=== PATIENT | male | born 1955 | race Caucasian/White ===

== ENCOUNTER 2016-09-27 07:13 | Observation (INO) | payer MEDICARE, OTHER ==
[2016-09-20 12:43] LABS: HEMATOCRIT 42.5 % (40.0-51.0); HEMOGLOBIN 13.2 g/dL (13.6-17.8)
[2016-09-20 13:09] LABS: BUN (BLOOD UREA NITROGEN) 22 MG/DL (6-23); CALCIUM, SERUM 8.5 MG/DL (8.5-10.4); CHLORIDE, SERUM 104 MMOL/L (96-112); CO2 (CARBON DIOXIDE) 27 MMOL/L (24-34); CREATININE 0.65 MG/DL (0.70-1.30); GFR AFRICAN AMERICAN 120 ML/MIN (>=60); GFR NON AFRICAN AMERICAN 104 ML/MIN (>=60); SODIUM, SERUM 143 MMOL/L (135-148)
[2016-09-20 13:11] LABS: GLUCOSE, SERUM 88 MG/DL (60-99)
--- NOTE | ~2016-09-27 | CN ---
Consultation Report [facility] [address] [place]. [address] NAME: ADORE CHOE : 51 STATUS : DIS Nelson PAT#: [id number] AGE: 61 ADM/REG DATE : 09/27/16 MR#: [id number] REPORT SERV DATE: 10/04/16 DICTATED BY: DEMIAN WILKS DATE: 10/04/16 REPORT STATUS : Draft TRANSCRIBED BY: MODL DATE: 10/04/16 CARDIOLOGY CONSULTATION DATE OF CONSULTATION: 09/27/2016 REASON FOR CONSULTATION: Chest pain. HISTORY OF PRESENT ILLNESS: The patient is a 61-year-old male, well known to our Cardiology Service. 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 The patient also reported some recent exertional chest discomfort. The patient was seen by Dr. Osman in our cardiology department on 09/11/2016 with a nuclear perfusion study performed on 09/26/2016 showing no evidence of ischemia, but reduced ejection fraction. Subsequent echocardiogram demonstrated ejection fraction of 40% with global hypokinesis with more moderate inferolateral and apical hypokinesis. The patient's description of the chest pain was intermittent in nature, occurring more often with exertion then without. He could report that it could last up to 30 minutes to 1 hour with the radiation of both shoulders with associated dyspnea and diaphoresis. This occurred several times per week. Pain free at time of consultation. PAST MEDICAL HISTORY: 1. Atrial flutter, status post ablation, 01/03/2002. 2. Persistent atrial fibrillation, status post AV node ablation and biventricular pacemaker/ICD. 3. Ventricular tachycardia, status post original ICD in 2007. 4. Pulmonary hypertension. 5. Peripheral arterial disease, status post left subclavian bypass, followed by Dr. Poe. a. Left lower extremity [id number]-[id number] amputation. 6. Scleroderma. 7. Pulmonary hypertension secondary to scleroderma. 8. History of SVC syndrome. REVIEW OF SYSTEMS: Negative for all organ systems except per the history of present illness. SOCIAL HISTORY: Denies illicit drug use. FAMILY HISTORY: Noncontributory. PHYSICAL EXAMINATION: VITAL SIGNS: Blood pressure 111/60, pulse 63, respirations 16 and unlabored, saturating 100% on 1 L nasal cannula, weight 98 kg. GENERAL: Elderly overweight male, in no acute distress. Consultation Report [facility] [address] [place]. [address] NAME: ADORE CHOE : 51 STATUS : DIS Nelson PAT#: [id number] AGE: 61 ADM/REG DATE : 09/27/16 MR#: [id number] REPORT SERV DATE: 10/04/16 DICTATED BY: DEMIAN WILKS DATE: 10/04/16 REPORT STATUS : Draft TRANSCRIBED BY: MODLakshmi DATE: 10/04/16 HEENT: Normal. NECK: Supple, no JVD or bruit, normal carotid upstroke bilaterally, no thyromegaly. LUNGS: Decreased breath sounds at the bases bilaterally. Otherwise clear to auscultation. CARDIOLOGY: Regular rhythm, normal S1, S2, no thrill, no murmur, rubs or gallops, normal PMI. ABDOMEN: Bowel sounds positive, soft, nontender, and nondistended. No masses or aortic bruits. No hepatosplenomegaly or hepatojugular reflux. EXTREMITIES: Yvfsc-tav-lplr amputation of the left lower extremity. SKIN: Warm and dry, no significant rash. NEUROLOGIC: Alert and oriented x 3. Appropriate mood. LABORATORIES: Sodium 143, potassium 4, chloride 104, BUN 22, creatinine 0.62, glucose 88. Hemoglobin 13.2, hematocrit 42.5, INR 1.8. EKG: AV paced rhythm. IMPRESSION: 1. Chest pain. Recent nuclear perfusion stress test with no evidence of ischemia; however, reduced ejection fraction. We have recommended the patient for cardiac catheterization. The risks, benefits, and alternatives of procedure were discussed with the patient. The patient's questions were answered. The patient voiced understanding the procedure and complications and desired to proceed. 2. History of paroxysmal atrial flutter with persistent atrial fibrillation, status post ablation and implantable defibrillator. Stable and doing well. 3. Permanent pacemaker/ICD implantation, device with normal function by most recent interrogation. Thank you for the opportunity to see the patient in consultation. We will plan for cardiac catheterization with decision making based upon findings. LADONNAL/SALOME Orville Wilks M.D. / [id number] CC: Kapil Sepulveda M.D.
--- NOTE | ~2016-09-27 | OP ---
Record Of Operation [facility] [address] [place]. [address] NAME: ADORE CHOE : 51 STATUS : ADM Nelson PAT#: [id number] AGE: 61 ADM/REG DATE : 09/27/16 MR#: [id number] REPORT SERV DATE: 09/27/16 DICTATED BY: JARON POE DATE: 09/27/16 REPORT STATUS : Draft TRANSCRIBED BY: MODL DATE: 09/27/16 DATE OF PROCEDURE: 09/27/2016 PREOPERATIVE DIAGNOSIS: Left upper extremity ischemia secondary to failing left carotid subclavian bypass. POSTOPERATIVE DIAGNOSIS: Left upper extremity ischemia secondary to failing left carotid subclavian bypass. PROCEDURES: 1. Ultrasound-guided percutaneous access, left brachial artery. 2. Left upper extremity arteriogram. 3. Cutting balloon angioplasty, left carotid subclavian bypass, proximal and distal anastomosis (5 mm x 20 mm cutting balloon). 4. Drug-coated balloon angioplasty, left carotid subclavian bypass (6 mm x 40 mm IN.PACT Admiral balloon). SURGEON: Jaron Poe M.D. SCIENCE EDUCATION PROFESSOR: Jarred. ANESTHESIA: Local with MAC. ESTIMATED BLOOD LOSS: 10 mL. CONTRAST: 15 mL. COMPLICATIONS: None. INDICATIONS: Mr. Choe is a pleasant 61-year-old man with multiple medical comorbidities. He has a remote history of left carotid subclavian bypass for atherosclerotic occlusive disease. He has developed recurrent left arm symptoms. He is recommended for arteriogram and percutaneous intervention if needed. DETAILS OF PROCEDURE: After informed consent was obtained, the patient was brought to the endovascular suite and placed in supine position. After administration of IV sedation, he was prepped and draped in usual sterile fashion. A time-out was performed. I commenced the procedure with ultrasound-guided percutaneous access in the left brachial artery. This was after anesthetizing the skin. A permanent image of the artery documenting patency was saved and stored in the patient's chart. I accessed the micropuncture needle and passed a micropuncture wire, confirmed with intraarterial ultrasound. I placed a micropuncture sheath. We then advanced a Bentson wire up in the left subclavian artery. I then placed a 5-Japanese sheath. I then advanced the Philipp 2 over the Bentson wire. The left subclavian arteriogram was performed, which showed a diseased proximal left subclavian artery. The origin of the kotlik vessel was chronically occluded. The vertebral arteries were visualized and patent. There was moderate stenosis proximal to the subclavian anastomosis Record Of Operation [facility] [place] [place]. [address] NAME: ADORE CHOE : 51 STATUS : ADM Nelson PAT#: [id number] AGE: 61 ADM/REG DATE : 09/27/16 MR#: [id number] REPORT SERV DATE: 09/27/16 DICTATED BY: JARON POE. DATE: 09/27/16 REPORT STATUS : Draft TRANSCRIBED BY: MODL DATE: 09/27/16 of the carotid subclavian bypass. There was about a 60% stenosis of the subclavian anastomosis. There was about an 80% stenosis of the carotid anastomosis. After that, I used a [employer] wire and a Hpilipp 2 to advance through the bypass after fully heparinizing. I advanced the catheter carefully into the left common carotid artery. The left common carotid artery was widely patent throughout its length including the origin. After that, I advanced the catheter down the proximal subclavian artery. Upsized the 5-Japanese sheath to a 6 x 45 sheath. I then did a wire exchange through the Philipp 2 for a V18 wire. I used a 5 mm x 20 mm cutting balloon and performed cutting balloon angioplasty of the proximal and distal anastomoses of the bypass. This resulted in significant improvement in the stenosis. After that, in hopes of preserving the patency longer, I used drug-coated balloon in the proximal and distal anastomoses. This was 6 mm x 40 mm IN.PACT Admiral balloon. Full 3 minutes inflation was used. Repeat contrast injection shows the bypass to be widely patent now with no residual stenosis and no dissection. There was still antegrade vertebral flow in the common carotid artery. After that, wires and catheters were removed. The sheath was removed and manual pressure held for hemostasis. The patient tolerated the procedure well without complications. I was present and participated in the entire case as dictated. RADHA/SALOME Jaron Poe M.D. / [id number] CC: Jaron Poe M.D. Brandi Long M.D. Terrance Osman M.D.
[~2016-09-27 07:13] MED LIST: *UNABLE1; AMIT50 PO; ASA5GR PO; BETAP120 PO; C5 PO; CARB/LEVO; CARBONYL IRON; CELLCEPT5 PO; CHEMO PO; COUMADIN7.5 MG PO; CRESTOR20 MG PO; CYMBALTA20 PO; CYMBALTA30 PO; CYMBALTA60 PO; DEMA100 PO; FERROUS SULF325 M1 PO; FESO4 PO; FISH OIL300 MG PO; FLAG500TAB PO; FLOMAX4 PO; IMOD PO; IRCON66 MG PO; IRON; IRON 65MG; JANTOVEN1 MG PO; JANTOVEN5 MG PO; KLOR-CON M2020 MEQ PO; L20 PO; LEVAQUIN750 MG PO; LIPITOR20 PO; LIPITOR40 PO; MAGNEBIND PO; MAGNESIUM; MAGOX4 PO; MSIMMR15 PO; NEUR300 PO; NITAZOXANIDE PO; NORCO1 TAB PO; OTC EYE DROP OPH; OTC IRON TABLET PO; OTC VITAMIN D PO; P5 PO; PCET PO; PENTOXIL400 MG PO; PREDNISONE 5 MG; PRILO PO; PRILOSEC40 MG PO; PRIN2.5 PO; RAN500 PO; RENAXA; REVATIO20 PO; SIN10 PO; SPIRO25 PO; TIKOSYN500 MCG PO; TOPAMAX25 PO; TRACLEER PO; TRENTAL400 PO; VITAMIN D1000 UNI1 PO; VITAMIN D2000 UNIT PO; VITAMIN D31000 UNIT; VITAMIN D31000 UNIT PO; WARFARIN PO; Z5 PO; [UNRECOGNIZED DRUG - REMARK]; [UNRECOGNIZED DRUG - REMARK]; [UNRECOGNIZED DRUG - REMARK] TOP
[2016-09-27 08:04] LABS: INTERNATIONAL NORMAL RATI 1.8 UNITS (-)
[2016-09-27 08:07] LABS: PROTIME (NOT ORD) 20.6 SEC (12.0-14.5)
[2016-09-27 14:09] LABS: BASOPHILS 0.2 %; BASOPHILS ABSOLUTE 0.01 10/3/uL (0.0-0.16); EOSINOPHILS 1.3 %; EOSINOPHILS ABSOLUTE 0.07 10/3/uL (0.0-0.53); HEMOGLOBIN 12.2 g/dL (13.6-17.8); IMMATURE GRANULOCYTES 0.2 %; IMMATURE GRANULOCYTES ABSOLUTE 0.01 10/3/uL (0.0-0.11); LYMPHOCYTES 14.1 %; LYMPHOCYTES ABSOLUTE 0.75 10/3/uL (0.67-4.30); MEAN CORPUS HGB CONC 32.9 g/dL (32.0-36.0); MEAN CORPUSCULAR HEMOGLOB 27.8 pg (26.0-34.0); MEAN PLATELET VOLUME 10.4 fL (9.2-13.0); MONOCYTES 6.2 %; MONOCYTES ABSOLUTE 0.33 10/3/uL (0.21-1.20); NEUTROPHILS ABSOLUTE 4.16 10/3/uL (2.02-8.40); PLATELET COUNT 137 10/3/uL (150-400); RBC DISTRIBUTION WIDTH 14.2 % (12.0-16.0); RED CELL COUNT 4.39 10/6/uL (4.7-6.1); WHITE BLOOD CELLS 5.3 10/3/uL (4.5-10.5)
[2016-09-27 14:10] LABS: HEMATOCRIT 37.1 % (40.0-51.0); MANUAL DIFF NO %; MEAN CORPUSCULAR VOLUME 84.5 fL (80-100)
[2016-09-27 14:23] LABS: BUN (BLOOD UREA NITROGEN) 19 MG/DL (6-23); CALCIUM, SERUM 8.3 MG/DL (8.5-10.4); CHLORIDE, SERUM 106 MMOL/L (96-112); CHOL/HDL RATIO(NOT ORDER) 2.2 (0-5); CHOLESTEROL 132 MG/DL (< 200); CO2 (CARBON DIOXIDE) 27 MMOL/L (24-34); CREATININE 0.55 MG/DL (0.70-1.30); GFR AFRICAN AMERICAN 129 ML/MIN (>=60); GFR NON AFRICAN AMERICAN 111 ML/MIN (>=60); GLUCOSE, SERUM 99 MG/DL (60-99); HDL CHOLESTEROL 60 MG/DL (> 39); LDL CHOLESTEROL 59 MG/DL (< 130); NON-HDL CHOLESTEROL 72 MG/DL (< 160); POTASSIUM, SERUM 4.2 MMOL/L (3.5-5.3); SODIUM, SERUM 141 MMOL/L (135-148)
[2016-09-27 14:25] LABS: TRIGLYCERIDE 69 MG/DL (< 150)
[2016-09-28 04:44] LABS: BASOPHILS 0.7 %; BASOPHILS ABSOLUTE 0.03 10/3/uL (0.0-0.16); EOSINOPHILS 3.1 %; EOSINOPHILS ABSOLUTE 0.14 10/3/uL (0.0-0.53); HEMATOCRIT 37.6 % (40.0-51.0); HEMOGLOBIN 11.8 g/dL (13.6-17.8); LYMPHOCYTES 21.5 %; LYMPHOCYTES ABSOLUTE 0.98 10/3/uL (0.67-4.30); MANUAL DIFF NO %; MEAN CORPUS HGB CONC 31.4 g/dL (32.0-36.0); MEAN CORPUSCULAR HEMOGLOB 26.5 pg (26.0-34.0); MEAN CORPUSCULAR VOLUME 84.3 fL (80-100); MEAN PLATELET VOLUME 10.7 fL (9.2-13.0); MONOCYTES 10.3 %; MONOCYTES ABSOLUTE 0.47 10/3/uL (0.21-1.20); NEUTROPHILS 64.4 %; NEUTROPHILS ABSOLUTE 2.93 10/3/uL (2.02-8.40); PLATELET COUNT 144 10/3/uL (150-400); RBC DISTRIBUTION WIDTH 14.7 % (12.0-16.0); RED CELL COUNT 4.46 10/6/uL (4.7-6.1); WHITE BLOOD CELLS 4.6 10/3/uL (4.5-10.5)
[2016-09-28 04:59] LABS: BUN (BLOOD UREA NITROGEN) 12 MG/DL (6-23); CALCIUM, SERUM 8.2 MG/DL (8.5-10.4); CHLORIDE, SERUM 108 MMOL/L (96-112); CO2 (CARBON DIOXIDE) 25 MMOL/L (24-34); CREATININE 0.55 MG/DL (0.70-1.30); GFR AFRICAN AMERICAN 129 ML/MIN (>=60); GFR NON AFRICAN AMERICAN 111 ML/MIN (>=60); GLUCOSE, SERUM 81 MG/DL (60-99); POTASSIUM, SERUM 4.4 MMOL/L (3.5-5.3); SODIUM, SERUM 144 MMOL/L (135-148)
[2016-11-07] MEDS ORDERED: FERROUS SULF325 M1 PO (13:57)
== END 2016-09-28 12:00 | disposition home or self-care (01) ==
LOC: SDC 07:13 → SSU1 10:47
PROVIDERS: Internal Medicine Cardiovascular Disease; Surgery
PROC: 03H Upper Arteries, Insertion (ICD-10-PCS; principal; 2016-09-27 08:15)
PROC: 02703ZZ Dilation of Coronary Artery, One Artery, Percutaneous Approach (ICD-10-PCS; 2016-09-27 08:15)
DX: T82.211 Breakdown (mechanical) of coronary artery bypass graft (principal); I48.92 Unspecified atrial flutter; E78.5 Hyperlipidemia, unspecified; M34.9 Systemic sclerosis, unspecified; I73.00 Raynaud's syndrome without gangrene; K57.30 Diverticulosis of large intestine without perforation or abscess without bleeding; Z87.19 Personal history of other diseases of the digestive system; I48.0 Paroxysmal atrial fibrillation; K21.9 Gastro-esophageal reflux disease without esophagitis; Z88.2 Allergy status to sulfonamides; Z88.0 Allergy status to penicillin; Z79.899 Other long term (current) drug therapy; Z98.1 Arthrodesis status; I11.0 Hypertensive heart disease with heart failure; I50.9 Heart failure, unspecified; Z79.01 Long term (current) use of anticoagulants; Z79.52 Long term (current) use of systemic steroids; Z91.048 Other nonmedicinal substance allergy status
CPT/HCPCS: 36215; 36222; 37246; 75710; 76937; 80048; 80061; 85014; 85018; 85025; 85610; 93005; 93458; 99152; A9270-GY; C1725; C1769; C1887; C1894; C2623; G0378; J1720; J2250; J3010; Q9967

== ENCOUNTER 2016-11-13 06:51 | Day surgery (SDC) | payer MEDICARE, OTHER ==
--- NOTE | ~2016-11-13 | EGD ---
EGD REPORT [facility] [address] [address] NAME: MICHAEL CHOE : 51 STATUS : REG [facility]#: [id number] AGE: 61 ADM/REG DATE : 11/13/16 MR#: [id number] REPORT SERV DATE: 11/13/16 DICTATED BY: DATE: REPORT STATUS : Draft TRANSCRIBED BY: [facility] DATE: 11/13/16 [facility] Patient Name: Michael Choe Date of : 1955 Attending MD: FRANCISCA ANGELA MD Procedure Date No Time: 11/13/2016 Procedure: Upper GI endoscopy Indications: Esophageal reflux symptoms that persist despite appropriate therapy, Unexplained chest pain Referring MD: NORMA DUDLEY Medicines: Monitored Anesthesia Care Complications: No immediate complications. Procedure: Pre-Anesthesia Assessment: - ASA Grade Assessment: IV - A patient with severe systemic disease that is a constant threat to life. After obtaining informed consent, the endoscope was passed under direct vision. Throughout the procedure, the patient's blood pressure, pulse, and oxygen saturations were monitored continuously. The GIF [id number] was introduced through the mouth, and advanced to the duodenal bulb. The upper GI endoscopy was accomplished without difficulty. The patient tolerated the procedure well. Findings: A gaping lower esophageal sphincter was found. The Z-line was irregular and was found 42 cm from the incisors. Biopsies were taken with a cold forceps for histology. No other significant abnormalities were identified in a careful examination of the esophagus. There is no endoscopic evidence of areas of erosion, ulcerations or varices in the entire esophagus. A large amount of food (residue) was found on the greater curvature of the stomach. I did not attempt to insufflate further or lavage, in order to minimize risk. The duodenal bulb was normal. Impression: - Gaping lower esophageal sphincter. - Z-line irregular, 42 cm from the incisors. Biopsied. - A large amount of food (residue) in the stomach. - Normal duodenal bulb. Recommendation: - Patient has a contact number available for emergencies. The signs and symptoms of potential delayed complications were discussed with the patient. Return to EGD REPORT [address] [address] NAME: MICHAEL CHOE : 51 STATUS : REG [facility] PAT#: [id number] AGE: 61 ADM/REG DATE : 11/13/16 MR#: [id number] REPORT SERV DATE: 11/13/16 DICTATED BY: DATE: REPORT STATUS : Draft TRANSCRIBED BY: Anonymous You DATE: 11/13/16 normal activities tomorrow. Written discharge instructions were provided to the patient. - Return to previous diet. - Discharge patient to home. - Continue present medications. - Await pathology results. - Use Reglan (metoclopramide) 5 mg PO BID for 8 weeks. Procedure Code(s): --- Professional --- 28000, Esophagogastroduodenoscopy, flexible, transoral; with biopsy, single or multiple Diagnosis Code(s): --- Professional --- K22.8, Other specified diseases of esophagus K21.9, Gastro-esophageal reflux disease without esophagitis R07.9, Chest pain, unspecified CPT copyright 2013 [employer]. All rights reserved. The codes documented in this report are preliminary and upon certified medical records coder review may be revised to meet current compliance requirements. FRANCISCA ANGELA MD 11/13/2016 8:05 AM This report has been signed electronically. Number of Addenda: 0 Note Initiated On: 11/13/2016 7:45 AM Scope Withdrawal Time 0 hours 0 minutes 0 seconds [address] [id number]
[2016-11-13 07:35] LABS: INTERNATIONAL NORMAL RATI 2.6 UNITS (-)
[2016-11-13 07:39] LABS: PROTIME (NOT ORD) 27.7 SEC (12.0-14.5)
== END 2016-11-13 23:59 | disposition home or self-care (01) ==
LOC: DMU 06:51
PROVIDERS: Anesthesiology; Internal Medicine Gastroenterology
PROC: 0DB58ZX Excision of Esophagus, Via Natural or Artificial Opening Endoscopic, Diagnostic (ICD-10-PCS; principal; 2016-11-13 08:00)
DX: K21.9 Gastro-esophageal reflux disease without esophagitis (principal); K22.8 Other specified diseases of esophagus; I73.9 Peripheral vascular disease, unspecified; I27.2 Other secondary pulmonary hypertension; G89.29 Other chronic pain; F41.9 Anxiety disorder, unspecified; D64.9 Anemia, unspecified; G25.81 Restless legs syndrome; M19.90 Unspecified osteoarthritis, unspecified site; F32.9 Major depressive disorder, single episode, unspecified; Z88.0 Allergy status to penicillin; Z88.8 Allergy status to other drugs, medicaments and biological substances; Z86.718 Personal history of other venous thrombosis and embolism; Z79.899 Other long term (current) drug therapy; Z98.41 Cataract extraction status, right eye; Z98.42 Cataract extraction status, left eye; Z98.890 Other specified postprocedural states
CPT/HCPCS: 85610; 88305